=== PATIENT | male | born 1980 | race Caucasian/White ===

== ENCOUNTER 2019-03-11 09:21 | Day surgery (SDC) | payer OTHER ==
[2019-03-11] VITALS (11 sets, daily range): BP systolic 97–113; BP diastolic 58–70; PULSE 77–98; RESP 15–82; Ht 172.7 cm; Wt 111.4 kg
[~2019-03-11] VITALS: Ht 172.7 cm; Wt 111.4 kg
[~2019-03-11 09:21] MED LIST: CYCL10TA7 PO; ERGO500013 ORAL; IBUP-1542 PO; SOD CHLORIDE 0.9% 1,000 ML IV SCH
--- NOTE | 2019-03-11 10:26 | PREAC ---
Date/Time of Note Date/Time of Note DATE: 03/11/19 TIME: 10:25 Anesthesia Eval and Record Evaluation Time Pre-Procedure Interview DATE: 03/11/19 TIME: 10:25 Age 38 Sex male NPO: 8 hrs Preoperative diagnosis Left Axillary Mass Planned procedure Excision of Left Axillary Mass Past Medical History Past Medical History: None Surgery & Anesthesia Issues No known issue Meds Anticoagulation: No Beta Tran within 24 hr: No Reason Beta Tran not given: Pt. not on B-Tran Reported Medications Ergocalciferol (Vitamin D2) (VITAMIN D2) 50,000 Unit Capsule, 1 CAP ORAL WEEKLY ON Sundays03/11/19 Discontinued Scripts Cyclobenzaprine Hcl* (Cyclobenzaprine Hcl*) 10 Mg Tablet, 10 MG PO Q8 PRN for muscle spasm, #60 TAB Prov:GINGER BAÑUELOS 03/12/16 Ibuprofen* (Motrin*) 600 Mg Tab, 600 MG PO Q6H PRN for PAIN, #20 TAB Prov:GINGER BAÑUELOS 03/12/16 Current Medications Sodium Chloride 1,000 ml @ 75 mls/hr [id number] IV Last administered on 03/11/19at 06:00; Admin Dose 75 MLS/HR; Start 03/11/19 at 06:00; Stop 03/11/19 at 20:00 Meds reviewed: Yes Allergies Coded Allergies: Penicillins (Verified Allergy, Unknown, 03/11/19) Allergies Reviewed: Yes Labs/Studies Labs Reviewed: Reviewed by anesthesiologist test: N/A Studies: ECG (n/a), CXR (n/a) Pre-procedure Exam Last vitals Vital Signs Date Temp Pulse Resp B/P (MAP) Pulse Ox O2 O2 Flow FiO2 Time Delivery Rate 03/11/19 97.5 77 16 113/70 98 Room Air 10:19 (84) Airway: Adequate mouth opening, Adequate thyromental dist Mallampati: Mallampati II Teeth: Normal Lung: Normal Heart: Normal ASA Physical Status ASA physical status: 1 Emergency: None Planned Anesthetic General/MAC: LMA, MAC Planned Pain Management Parenteral pain med Pre-operative Attestations Prior to commencing anesthesia and surgery, the patient was re-evaluated, there was verification of: *The patient's identity *The results of appropriate recent lab work and preoperative vital signs *The above evaluation not changing prior to induction *Anesthetic plan, risk benefits, alternative and complications discussed with patient/family; questions answered; patient/family understands, accepts and wishes to proceed. JOSELO CORMIER MD Mar 11, 2019 10:26
[2019-03-11] MEDS ORDERED: FENTAnyl 50 MCG/ML VIAL IV PRN (10:30)
[2019-03-11] MEDS ORDERED: ONDANSETRON 4 MG INJ IV PRN (10:30)
[2019-03-11] MEDS ORDERED: HYDROmorphONE 1 MG/5 ML IV SYRINGE IV PRN (10:30)
[2019-03-11] MEDS ORDERED: OXYCODONE/ACETAMINOPHEN (5/325) TAB PO PRN (10:30)
[2019-03-11] MEDS ORDERED: CEFAZOLIN 1 GM INJ ONE (10:58)
[2019-03-11] MEDS ORDERED: MIDAZOLAM 1 MG/ML 2 ML INJ ONE (10:58)
[2019-03-11] MEDS ORDERED: FENTAnyl 50 MCG/ML VIAL ONE (10:58)
[2019-03-11] MEDS ORDERED: PROPOFOL 20 ML ONE (10:58)
[2019-03-11] MEDS ORDERED: CLINDAMYCIN 900 MG/D5W (PMX) 50 ML IVPB SCH (11:00)
[2019-03-11] MEDS ORDERED: BUPIVACAINE 0.5%/EPI (SDV) 30 ML INJ ONE (11:11)
[2019-03-11] MEDS ORDERED: KETOROLAC 30 MG INJ ONE (11:24)
[2019-03-11] MEDS ORDERED: ONDANSETRON 4 MG INJ ONE (11:24)
[2019-03-11] MEDS ORDERED: METOCLOPRAMIDE 10 MG INJ ONE (11:24)
[2019-03-11] MEDS ORDERED: DEXAMETHASONE 4 MG/ML 5 ML INJ ONE (11:24)
[2019-03-11] MEDS ORDERED: CLINDAMYCIN 900 MG/D5W (PMX) 50 ML IVPB ONE (11:27)
--- NOTE | 2019-03-11 11:31 | SIPON ---
Date/Time of Note Date/Time of Note DATE: 03/11/19 TIME: 11:30 Operative Report Preoperative Diagnosis Left axillary mass Postoperative Diagnosis Same Operation/Procedure Performed Resection of left axillary mass Surgeon see signature line bilingual sales assistant Dr Valentin Anesthesia: general Estimated blood loss: 10 - 50 ml's Transfusion Required none Specimen Left axillary mass Grafts/Implants none Complications none LISA POWELL MD Mar 11, 2019 11:31
--- NOTE | 2019-03-11 11:43 | PAC ---
Date/Time of Note Date/Time of Note DATE: 03/11/19 TIME: 11:42 Post-Anesthesia Notes Post-Anesthesia Note Last documented vital signs Vital Signs Date Temp Pulse Resp B/P (MAP) Pulse Ox O2 O2 Flow FiO2 Time Delivery Rate 03/11/19 98.5 77 16 113/70 98 Room Air 11:42 (84) Activity: WNL Respiratory function: WNL Cardiovascular function: WNL Mental status: Baseline Pain reasonably controlled: Yes Hydration appropriate: Yes Nausea/Vomiting absent: Yes JOSELO CORMIER MD Mar 11, 2019 11:43
--- NOTE | 2019-03-11 13:01 | OPR ---
DATE OF OPERATION: 03/11/2019 PREOPERATIVE DIAGNOSIS: Left axillary mass, probable lipoma. POSTOPERATIVE DIAGNOSIS: Left axillary mass, probable lipoma. OPERATION PERFORMED: Resection of left axillary mass. ANESTHESIA: General. ANESTHESIOLOGIST: Giuliano Valentin MD SURGEON: Boston Marquez MD MANAGER ENVIRONMENTAL: Judy Valentin MD INDICATIONS FOR PROCEDURE: The patient is a 38-year-old male who presented with enlarging mass at th e junction of his left upper extremity with the axillary region. Clinically, it was consistent with probable lipoma. He requested excision. He consented and was scheduled for surgery. DESCRIPTION OF PROCEDURE: The patient was brought to the operating theater, placed under general ane sthesia. The left axillary region and upper extremity was prepped and draped in usual sterile fashio n. The mass, which measured approximately 8 cm, was identified. An approximately 6 cm incision was made directly over the mass. Subcutaneous tissue was dissected with cautery. Deep within the subcut aneous space, a well-circumscribed mass consistent with probable lipoma was identified. It was enucl eated with a gloved finger and then lymphovascular structures were controlled by using cautery. Spec imen was then removed and sent for permanent pathologic analysis. The wound was irrigated. Minimal residual bleeding was controlled with cautery. The area was then infiltrated with 0.5% Marcaine loca l anesthetic with epinephrine, and the skin was reapproximated with a 4-0 Vicryl suture in subcuticul ar fashion, and Steri-Strips were applied. The patient tolerated procedure well. Estimated blood lo ss was 10 mL. There were no complications and the patient was transported in stable condition to the recovery room. Dictated By: BOSTON MARQUEZ MD TL/NTS Conf#: [id number] DID#: [id number] CC: JUDY VALENTIN MD;*EndCC*
== END 2019-03-11 13:05 | disposition home or self-care (01) ==
LOC: SDS 09:21
PROVIDERS: ATTEND Surgery Surgical Oncology
DX: D17.22 Benign lipomatous neoplasm of skin and subcutaneous tissue of left arm (principal)
CPT/HCPCS: 21552; 88307; J0690; J1100; J1885; J2250; J2405; J2765; J3010; Z7512; Z7610